=== PATIENT | female | born 1995 | race Two or more races ===

== ENCOUNTER 2023-04-30 11:12 | Emergency (ER) | payer SELFPAY ==
[2023-04-30] MEDS ORDERED: Sodium Chloride 0.9% 10 ML Syringe FLUSH PRN (11:24)
[2023-04-30] MEDS ORDERED: methylPREDNISolone Sodium Succinate 125 MG/2 ML SDV IVPUSH ONE (11:24)
[2023-04-30] MEDS ORDERED: Famotidine 20 MG/2 ML SDV IVPUSH ONE (11:27)
[2023-04-30] MEDS ORDERED: diphenhydrAMINE 50 MG/ML SDV IVPUSH ONE (11:28)
== END 2023-04-30 12:40 | disposition home or self-care (01) ==
LOC: JD.ED 11:12
DX: T63.441A Toxic effect of venom of bees, accidental (unintentional), initial encounter (principal); Z91.030 Bee allergy status
CPT/HCPCS: 96374; 96375; 99282; J1200; J2930; J3490; 99284